=== PATIENT | male | born 1980 | race Caucasian/White ===

== ENCOUNTER 2019-02-18 20:23 | Inpatient (IN) | payer MEDICAID ==
[~2019-02-18] VITALS: Ht 188 cm; Wt 126.0 kg
[~2019-02-18 20:23] MED LIST: BUPR1FIL7 TD
[2019-02-18] MEDS ORDERED: PIPERACILLIN/TAZO/PMX 4.5GM 100 ML IV ONE (21:00)
[2019-02-18] MEDS ORDERED: SODIUM CHLORIDE FLUSH 10ML SYR IVF ONE (21:00)
[2019-02-18] MEDS ORDERED: SODIUM CHLORIDE 0.9% 1,000ML IVBOLUS ONE (21:00)
[2019-02-18] MEDS ORDERED: VANCOMYCIN PER PHARMACY IV ONE (21:00)
--- NOTE | 2019-02-18 21:10 | NUR ---
THIS IS A 38 YO MALE C/O A WOUND TO THE LEFT ARM X 1.5 WEEKS WITH SWELLING/REDNESS X 5 DAYS. PT ORIGINALLY SEEN HERE YESTERDAY, WOUND WORSE TODAY. PT COOL, CLAMMY AND DIAPHORETIC. ERYTHEMA AND SWELLING EXTEND FROM LEFT MID UPPER ARM TO JUST BELOW LEFT WRIST. WOUND IS APPROX 3.5 CM X 2CM ON LEFT ELBOW. PT AO X 4. RESP EVEN AND UNLABORED. CALL LIGHT WITHIN REACH. WILL CONT TO MONITOR PT.
[2019-02-18 21:26] LABS: MEAN CORPUSCULAR HEMOGLOBIN 29.6 pg (27.5-34.5); MEAN PLATELET VOLUME 9.2 fL (7.4-10.4); PLATELET COUNT 280 x10^3/uL (130-400); RED CELL DISTRIBUTION WIDTH 12.8 % (9.4-14.8)
[2019-02-18] MEDS ORDERED: VANCOMYCIN 2,000 MG in SODIUM CHLORIDE 0.9% 500 ML IV ONE (21:30)
[2019-02-18 21:37] LABS: ALANINE AMINOTRANSFERASE 44 U/L (12-78); ALBUMIN 3.6 g/dL (3.4-5.0); ANION GAP 7 mmol/L (5-15); CALCIUM 8.7 mg/dL (8.5-10.1); CHLORIDE 103 mmol/L (98-107); CREATININE 0.96 mg/dL (0.7-1.3)
[2019-02-18 21:40] LABS: ALKALINE PHOSPHATASE 69 U/L (45-117); BILIRUBIN,TOTAL 0.9 mg/dL (0.2-1.0)
--- NOTE | 2019-02-18 21:41 | NUR ---
TASK RN: PIV PLACED AND BLOOD CULTURES OBTAINED. ABX THERAPY STARTED AT CARE RNS REQUEST.
[2019-02-18 21:45] LABS: BASOPHILS # (AUTO) 0.06 x10^3/uL (0-0.1); BASOPHILS % (AUTO) 0 % (0-1); EOSINOPHILS # (AUTO) 0.09 x10^3/uL (0-0.4); EOSINOPHILS % (AUTO) 1 % (1-7); LYMPHOCYTES # (AUTO) 2.06 x10^3/uL (1-3.4); LYMPHOCYTES % (AUTO) 11 % (22-44); MD SCAN; MONOCYTES # (AUTO) 0.43 x10^3/uL (0.2-0.8); MONOCYTES % (AUTO) 2 % (2-9); NEUTROPHILS # (AUTO) 15.83 x10^3/uL (1.8-6.8); NEUTROPHILS % (AUTO) 86 % (42-75)
--- NOTE | 2019-02-18 22:00 | NUR ---
PT CURRENTLY RESTING ON GURNEY. NAD NOTED. SKIN COOL, CLAMMY. ERTYHEMA TO LEFT ARM. PT AO X 4. PT DENIES PAIN/NEEDS. US AT BEDSIDE. BLOOD CULTURES X 2 HAVE BEEN DRAWN PRIOR TO STARTING ABX.
--- NOTE | 2019-02-18 22:03 | NUR ---
US AT BEDSIDE. ADMITTING [facility]ELER AT BEDSIDE FOR EVAL. REPORT TO GRISELDA NORIEGA ON [facility].
[2019-02-18] MEDS: PIPERACILLIN/TAZO/PMX 3.375GM 50 ML IV SCH (22:18)
[2019-02-18] MEDS ORDERED: BISACODYL 10 MG SUPP PR PRN (22:30)
[2019-02-18] MEDS ORDERED: ONDANSETRON ODT 4 MG PO PRN (22:30)
[2019-02-18] MEDS ORDERED: VANCOMYCIN PER PHARMACY MC PRN (22:30)
[2019-02-18] MEDS ORDERED: POLYETHYLENE GLYCOL 17 GM PACKET PO PRN (22:30)
[2019-02-18] MEDS ORDERED: ACETAMINOPHEN 325 MG TABLET PO PRN (22:30)
[2019-02-18 22:45] VITALS: BP 151/83
[2019-02-18] MEDS ORDERED: PHARMACOKINETIC CONSULTATION MC ONE (23:00)
[2019-02-18] MEDS ORDERED: PHARMACOKINETIC MONITORING MC PRN (23:00)
[2019-02-18] MEDS: NICOTINE 21 MG/24 HR PATCH.TD24 TD SCH (23:12)
[2019-02-18] MEDS: SODIUM CHLORIDE FLUSH 10ML SYR IVF SCH (23:12)
[2019-02-19 02:53] VITALS: BP 114/71
[2019-02-19 05:48] LABS: BASOPHILS % (AUTO) 1 % (0-1); EOSINOPHILS # (AUTO) 0.12 x10^3/uL (0-0.4); EOSINOPHILS % (AUTO) 1 % (1-7); LYMPHOCYTES # (AUTO) 1.94 x10^3/uL (1-3.4); LYMPHOCYTES % (AUTO) 15 % (22-44); MD NO; MEAN CORPUSCULAR HEMOGLOBIN 29.3 pg (27.5-34.5); MEAN CORPUSCULAR HGB CONC 33.5 g/dL (33.2-36.2); MEAN CORPUSCULAR VOLUME 87.4 fL (81-97); MEAN PLATELET VOLUME 9.5 fL (7.4-10.4); MONOCYTES # (AUTO) 0.89 x10^3/uL (0.2-0.8); MONOCYTES % (AUTO) 7 % (2-9); NEUTROPHILS # (AUTO) 9.95 x10^3/uL (1.8-6.8); NEUTROPHILS % (AUTO) 77 % (42-75); PLATELET COUNT 245 x10^3/uL (130-400); RED BLOOD COUNT 4.39 x10^6/uL (4.38-5.82); RED CELL DISTRIBUTION WIDTH 12.8 % (9.4-14.8)
[2019-02-19 05:50] LABS: ALANINE AMINOTRANSFERASE 35 U/L (12-78); ALBUMIN 2.8 g/dL (3.4-5.0); ANION GAP 6 mmol/L (5-15); CALCIUM 8.4 mg/dL (8.5-10.1); CHLORIDE 110 mmol/L (98-107); CREATININE 0.83 mg/dL (0.7-1.3)
[2019-02-19] MEDS: PIPERACILLIN/TAZO/PMX 3.375GM 50 ML IV SCH ×3 (05:50→21:12)
[2019-02-19 05:52] LABS: ALKALINE PHOSPHATASE 67 U/L (45-117); BILIRUBIN,TOTAL 0.7 mg/dL (0.2-1.0); TOTAL PROTEIN 6.6 g/dL (6.4-8.2)
[2019-02-19 07:38] VITALS: BP 117/72
[2019-02-19] MEDS: SODIUM CHLORIDE FLUSH 10ML SYR IVF SCH ×2 (08:17→21:12)
[2019-02-19] MEDS: SENNA/DOCUSATE TABLET PO SCH (08:17)
[2019-02-19] MEDS: METHADONE 40 MG TABLET.SOL PO SCH (09:03)
[2019-02-19] MEDS: VANCOMYCIN 2,200 MG in SODIUM CHLORIDE 0.9% 500 ML IV SCH ×2 (10:27→22:12)
[2019-02-19 11:22] LABS: HCT (SEDRATE) 38.4 % (39.2-51.8)
[2019-02-19] MEDS ORDERED: GADOBUTROL 15 MMOL/15 ML PFS ONE (12:23)
[2019-02-19 13:22] VITALS: BP 109/68
[2019-02-19] MEDS ORDERED: PROPOFOL 10 MG/ML, 50ML ONE (13:44)
[2019-02-19] MEDS ORDERED: CEFAZOLIN 1,000 MG ONE (13:44)
[2019-02-19] MEDS ORDERED: PHENYLEPHRINE 10 MG/ML ONE (13:44)
[2019-02-19] MEDS ORDERED: BACITRACIN 50,000 UNIT ONE (18:06)
[2019-02-19] MEDS ORDERED: MIDAZOLAM 1 MG/ML, 2ML ONE (18:08)
[2019-02-19] MEDS ORDERED: FENTANYL PF 100 MCG/2ML ONE (18:08)
[2019-02-19] MEDS ORDERED: ACETAMINOPHEN 325 MG TABLET PO PRN (18:30)
[2019-02-19] MEDS ORDERED: HYDROmorphone 2 MG/ML, 1ML IVPush PRN (18:30)
[2019-02-19] MEDS ORDERED: ALBUTEROL/IPRATROPIUM 2.5MG/0.5MG, 3 ML NPPB PRN (18:30)
[2019-02-19] MEDS ORDERED: MIDAZOLAM 1 MG/ML, 2ML IV PRN (18:30)
[2019-02-19] MEDS ORDERED: FENTANYL PF 100 MCG/2ML IV PRN (18:30)
[2019-02-19] MEDS ORDERED: PROMETHAZINE 25 MG/ML, 1ML IV PRN (18:30)
[2019-02-19] MEDS ORDERED: MEPERIDINE/PF 25MG/0.5ML IVPush PRN (18:30)
[2019-02-19] MEDS ORDERED: OXYcodone 5 MG/5 ML ORAL.SOL UDC PO PRN (18:30)
[2019-02-19] MEDS ORDERED: hydrALAzine 20 MG/ML, 1ML IV PRN (18:30)
[2019-02-19] MEDS ORDERED: SCOPOLAMINE PATCH, 1.5MG PATCH.TD72 TD PRN (18:30)
[2019-02-19] MEDS ORDERED: ONDANSETRON 2MG/ML, 2ML IV PRN (18:30)
[2019-02-19] MEDS ORDERED: KETOROLAC 30 MG/1 ML ONE (18:49)
[2019-02-19] MEDS ORDERED: ROCURONIUM 10 MG/ML,10ML ONE (18:49)
[2019-02-19] MEDS ORDERED: FENTANYL PF 250 MCG/5ML ONE (19:02)
[2019-02-19] MEDS ORDERED: DEXAMETHASONE 4 MG/ML, 1ML ONE (19:11)
[2019-02-19] MEDS ORDERED: PROPOFOL 10 MG/ML, 20ML ONE (19:11)
[2019-02-19] MEDS ORDERED: ONDANSETRON 2MG/ML, 2ML ONE (19:11)
[2019-02-19] MEDS ORDERED: SUCCINYLCHOLINE 20 MG/ML, 10ML ONE (19:11)
[2019-02-19] MEDS ORDERED: ACETAMINOPHEN 325 MG TABLET ONE (19:33)
[2019-02-19] MEDS ORDERED: ACETAMINOPHEN 650 MG/20.3 ML UDC ONE (19:33)
[2019-02-19] MEDS ORDERED: OXYcodone 5 MG/5 ML ORAL.SOL UDC ONE (19:47)
[2019-02-19 20:32] VITALS: BP 130/82
[2019-02-19] MEDS: KETOROLAC 30 MG/1 ML IV PRN (21:11)
[2019-02-19] MEDS: TEMAZEPAM 15 MG CAPSULE PO PRN (22:12)
[2019-02-19] MEDS: NICOTINE 21 MG/24 HR PATCH.TD24 TD SCH (22:13)
[2019-02-20] VITALS: BP 127/83
[2019-02-20] MEDS: OXYcodone IR 5MG TABLET PO PRN ×2 (00:18→08:59)
[2019-02-20] MEDS: KETOROLAC 30 MG/1 ML IV PRN ×3 (03:28→23:13)
[2019-02-20] MEDS: PIPERACILLIN/TAZO/PMX 3.375GM 50 ML IV SCH ×4 (03:28→20:45)
[2019-02-20 03:50] VITALS: BP 114/78
[2019-02-20 06:02] LABS: BASOPHILS # (AUTO) 0.12 x10^3/uL (0-0.1); BASOPHILS % (AUTO) 1 % (0-1); EOSINOPHILS # (AUTO) 0.01 x10^3/uL (0-0.4); EOSINOPHILS % (AUTO) 0 % (1-7); LYMPHOCYTES # (AUTO) 0.72 x10^3/uL (1-3.4); LYMPHOCYTES % (AUTO) 5 % (22-44); MD NO; MEAN CORPUSCULAR HEMOGLOBIN 29.2 pg (27.5-34.5); MEAN CORPUSCULAR VOLUME 88.3 fL (81-97); MEAN PLATELET VOLUME 9.5 fL (7.4-10.4); MONOCYTES # (AUTO) 0.43 x10^3/uL (0.2-0.8); MONOCYTES % (AUTO) 3 % (2-9); NEUTROPHILS # (AUTO) 12.13 x10^3/uL (1.8-6.8); NEUTROPHILS % (AUTO) 91 % (42-75); PLATELET COUNT 253 x10^3/uL (130-400); RED BLOOD COUNT 4.53 x10^6/uL (4.38-5.82); RED CELL DISTRIBUTION WIDTH 12.8 % (9.4-14.8)
[2019-02-20 06:10] LABS: CALCIUM 8.9 mg/dL (8.5-10.1); CHLORIDE 110 mmol/L (98-107)
[2019-02-20 06:14] LABS: ANION GAP 5 mmol/L (5-15); CREATININE 0.75 mg/dL (0.7-1.3)
[2019-02-20 08:01] VITALS: BP 158/79
[2019-02-20] MEDS: METHADONE 40 MG TABLET.SOL PO SCH (08:49)
[2019-02-20] MEDS: SENNA/DOCUSATE TABLET PO SCH (08:49)
[2019-02-20] MEDS: SODIUM CHLORIDE FLUSH 10ML SYR IVF SCH ×2 (09:00→20:45)
[2019-02-20] MEDS: VANCOMYCIN 2,200 MG in SODIUM CHLORIDE 0.9% 500 ML IV SCH ×2 (10:17→23:12)
[2019-02-20 14:14] VITALS: BP 131/71
[2019-02-20 18:50] VITALS: BP 109/64
[2019-02-20] MEDS: NICOTINE 21 MG/24 HR PATCH.TD24 TD SCH (23:12)
[2019-02-20] MEDS: TEMAZEPAM 15 MG CAPSULE PO PRN (23:19)
[2019-02-21 02:14] VITALS: BP 110/68
[2019-02-21] MEDS: PIPERACILLIN/TAZO/PMX 3.375GM 50 ML IV SCH ×3 (03:05→09:00)
[2019-02-21 05:58] LABS: BASOPHILS # (AUTO) 0.04 x10^3/uL (0-0.1); BASOPHILS % (AUTO) 1 % (0-1); EOSINOPHILS # (AUTO) 0.13 x10^3/uL (0-0.4); EOSINOPHILS % (AUTO) 2 % (1-7); LYMPHOCYTES # (AUTO) 1.67 x10^3/uL (1-3.4); LYMPHOCYTES % (AUTO) 21 % (22-44); MD NO; MEAN CORPUSCULAR HEMOGLOBIN 29.2 pg (27.5-34.5); MEAN CORPUSCULAR HGB CONC 33.1 g/dL (33.2-36.2); MEAN CORPUSCULAR VOLUME 88.1 fL (81-97); MEAN PLATELET VOLUME 9.2 fL (7.4-10.4); MONOCYTES # (AUTO) 0.57 x10^3/uL (0.2-0.8); MONOCYTES % (AUTO) 7 % (2-9); NEUTROPHILS % (AUTO) 69 % (42-75); PLATELET COUNT 260 x10^3/uL (130-400); RED BLOOD COUNT 4.14 x10^6/uL (4.38-5.82); RED CELL DISTRIBUTION WIDTH 12.8 % (9.4-14.8)
[2019-02-21 06:06] LABS: ANION GAP 6 mmol/L (5-15); CALCIUM 8.5 mg/dL (8.5-10.1); CHLORIDE 114 mmol/L (98-107)
[2019-02-21 06:07] LABS: CREATININE 0.69 mg/dL (0.7-1.3)
[2019-02-21 06:55] VITALS: BP 116/72
[2019-02-21] MEDS: SENNA/DOCUSATE TABLET PO SCH (08:49)
[2019-02-21] MEDS: METHADONE 40 MG TABLET.SOL PO SCH (08:50)
[2019-02-21] MEDS: KETOROLAC 30 MG/1 ML IV PRN (08:50)
[2019-02-21] MEDS: SODIUM CHLORIDE FLUSH 10ML SYR IVF SCH (08:50)
[2019-02-21] MEDS: VANCOMYCIN 2,200 MG in SODIUM CHLORIDE 0.9% 500 ML IV SCH (10:33)
[2019-02-21] MEDS ORDERED: LACT1TAB13 PO (11:43)
[2019-02-21] MEDS ORDERED: ACET325T14 PO (11:43)
[2019-02-21 11:45] VITALS: BP 115/69
[2019-02-21] MEDS ORDERED: CLIN300C8 PO (11:48)
[2019-02-21] MEDS ORDERED: METH10TA3 PO (15:12)
== END 2019-02-21 16:05 | disposition home or self-care (01) | DRG 501 ==
LOC: ED 21:13 → EDIP 21:44 → 4NOR 22:38
PROVIDERS: ADMIT Internal Medicine; ATTEND Internal Medicine
PROC: 0MB40ZZ Excision of Left Elbow Bursa and Ligament, Open Approach (ICD-10-PCS; principal; 2019-02-19 19:00)
DX: M71.122 Other infective bursitis, left elbow (principal); L03.114 Cellulitis of left upper limb; F11.20 Opioid dependence, uncomplicated; B95.62 Methicillin resistant Staphylococcus aureus infection as the cause of diseases classified elsewhere; F17.210 Nicotine dependence, cigarettes, uncomplicated; F32.9 Major depressive disorder, single episode, unspecified; Z71.6 Tobacco abuse counseling; Z63.8 Other specified problems related to primary support group
CPT/HCPCS: 36415; 80048; 80053; 80202; 83605; 85025; 85651; 86140; 87040; 87070; 87075; 87077; 87186; 87205; 96365; 96375; A9585; G0378; J0690; J1100; J1885; J2250; J2405; J2543; J2704; J3010; J3370; J0330; J2370; J7030; J7040